=== PATIENT | female | born 1950 | race Caucasian/White ===

== ENCOUNTER 2017-10-08 09:56 | Outpatient (CLI) | payer OTHER, MEDICARE ==
[2017-10-08 17:37] LABS: BASOPHILS % (AUTO) 0.5 %; EOSINOPHILS # (AUTO) 0.2 10^3/uL (0.0-0.7); EOSINOPHILS % (AUTO) 3.7 %; HGB - HEMOGLOBIN 13.7 g/dL (12.0-16.0); LYMPHOCYTES # (AUTO) 2.3 10^3/uL (1.5-3.5); LYMPHOCYTES % (AUTO) 37.9 %; MEAN CORPUSCULAR HEMOGLOBIN 30.8 pg (27.0-31.0); MEAN CORPUSCULAR HGB CONC 33.5 g/dL (32.0-36.0); MEAN CORPUSCULAR VOLUME 92.1 fL (81.0-99.0); MEAN PLATELET VOLUME 7.7 fL (7.9-10.8); MONOCYTES # (AUTO) 0.6 10^3/uL (0.0-1.0); MONOCYTES % (AUTO) 9.2 %; NEUTROPHILS % (AUTO) 48.7 %; PLT - PLATELET COUNT 263 10^3/uL (130-450); RED BLOOD COUNT 4.43 10^6/uL (4.20-5.40); RED CELL DISTRIBUTION WIDTH 13.8 % (12.0-15.0); WHITE BLOOD COUNT 6.1 x10^3/uL (4.8-10.8)
[2017-10-08 17:48] LABS: HB2 TOTAL 14.5 g/dL; HEMOGLOBIN A1C 0.6 g/dL; HEMOGLOBIN A1C % 5.9 % (4.6-6.2)
[2017-10-08 18:39] LABS: ALBUMIN 4.2 g/dL (3.2-5.5); ALBUMIN/GLOBULIN RATIO 1.4 (1.0-2.2); ALKALINE PHOSPHATASE 71 IU/L (42-121); ALT ALANINE AMINOTRANSFERASE 27 IU/L (10-60); AST ASPARTATE AMINOTRANSFERASE 25 IU/L (10-42); BILIRUBIN,TOTAL 1.5 mg/dL (0.2-1.0); BUN - BLOOD UREA NITROGEN 15 mg/dL (6-20); CALCIUM 9.9 mg/dL (8.5-10.3); CARBON DIOXIDE - CO2 29 mmol/L (21-32); CHLORIDE 101 mmol/L (101-111); CHOL/HDL RATIO 3.7 (<4.4); CHOLESTEROL 269 mg/dL; CREATININE 0.5 mg/dL (0.4-1.0); GFR - MDRD 123 (>89); GLUCOSE 110 mg/dL (70-100); HDL CHOLESTEROL 72 mg/dL; LDL CHOLESTEROL,CALCULATED 168 mg/dL; LDL/HDL RATIO 2.3 (<4.4); SODIUM 136 mmol/L (135-145); TOTAL PROTEIN 7.1 g/dL (6.7-8.2); VLDL CHOLESTEROL 29 mg/dL
== END 2017-10-08 09:57 | disposition home or self-care (01) ==
LOC: LAB.F 09:56
PROVIDERS: ATTEND Physician Assistant Medical
DX: I10 Essential (primary) hypertension (principal); E78.5 Hyperlipidemia, unspecified; R73.01 Impaired fasting glucose; E03.9 Hypothyroidism, unspecified
CPT/HCPCS: 36415; 80053; 80061; 83036; 84443; 85025

== ENCOUNTER 2017-10-19 08:00 | Outpatient (CLI) | payer MEDICARE | END 2017-10-19 23:59 | disposition home or self-care (01) | LOC: LAB.F 08:00 | PROVIDERS: ATTEND Family Medicine | DX: Z53.9 Procedure and treatment not carried out, unspecified reason (principal) | CPT/HCPCS: 81599; 83630; 87045; 87046; 87177; 87209 ==

== ENCOUNTER 2017-10-21 14:34 | Outpatient (CLI) | payer OTHER, MEDICARE | END 2017-10-21 14:35 | disposition home or self-care (01) | LOC: LAB.F 14:34 | PROVIDERS: ATTEND Family Medicine | DX: K52.9 Noninfective gastroenteritis and colitis, unspecified (principal) | CPT/HCPCS: 81599; 82270; 83630; 87045; 87046; 87177; 87209 ==

== ENCOUNTER 2018-11-24 10:54 | Outpatient (CLI) | payer MEDICARE ==
[2018-11-24 19:29] LABS: CREATININE 0.5 mg/dL (0.4-1.0)
== END 2018-11-24 10:55 | disposition home or self-care (01) ==
LOC: LAB.F 10:54
PROVIDERS: ATTEND Physical Medicine & Rehabilitation
DX: R29.898 Other symptoms and signs involving the musculoskeletal system (principal)
CPT/HCPCS: 36415; 82565

== ENCOUNTER 2019-08-14 11:59 | Outpatient (CLI) | payer MEDICARE ==
[2019-08-14 18:36] LABS: BASOPHILS % (AUTO) 0.6 %; EOSINOPHILS # (AUTO) 0.2 10^3/uL (0.0-0.7); EOSINOPHILS % (AUTO) 2.7 %; HGB - HEMOGLOBIN 13.6 g/dL (12.0-16.0); LYMPHOCYTES # (AUTO) 2.8 10^3/uL (1.5-3.5); LYMPHOCYTES % (AUTO) 40.7 %; MEAN CORPUSCULAR HEMOGLOBIN 30.2 pg (27.0-31.0); MEAN CORPUSCULAR HGB CONC 32.5 g/dL (32.0-36.0); MEAN CORPUSCULAR VOLUME 93.1 fL (81.0-99.0); MEAN PLATELET VOLUME 9.6 fL (7.9-10.8); MONOCYTES # (AUTO) 0.6 10^3/uL (0.0-1.0); MONOCYTES % (AUTO) 8.7 %; NEUTROPHILS # (AUTO) 3.3 10^3/uL (1.5-6.6); PLT - PLATELET COUNT 257 10^3/uL (130-450); RED CELL DISTRIBUTION WIDTH 13.3 % (12.0-15.0); WHITE BLOOD COUNT 6.9 x10^3/uL (4.8-10.8)
[2019-08-14 18:52] LABS: ALBUMIN 4.3 g/dL (3.2-5.5); ALBUMIN/GLOBULIN RATIO 1.5 (1.0-2.2); BILIRUBIN,TOTAL 1.7 mg/dL (0.2-1.0); CALCIUM 10.2 mg/dL (8.5-10.3); CREATININE 0.5 mg/dL (0.4-1.0); TOTAL PROTEIN 7.1 g/dL (6.7-8.2)
== END 2019-08-14 12:00 | disposition home or self-care (01) ==
LOC: LAB.S 11:59
PROVIDERS: ATTEND Physician Assistant Medical
DX: I10 Essential (primary) hypertension (principal)
CPT/HCPCS: 36415; 80053; 85025

== ENCOUNTER 2019-12-02 14:10 | Outpatient (CLI) | payer MEDICARE | END 2019-12-02 23:59 | disposition home or self-care (01) | LOC: LAB.R 14:10 | PROVIDERS: ATTEND Physician Assistant Medical | DX: B97.89 Other viral agents as the cause of diseases classified elsewhere (principal) | CPT/HCPCS: 81599; U0002 ==

== ENCOUNTER 2020-01-12 04:06 | Emergency (ER) | payer MEDICARE ==
[2020-01-12 04:49] LABS: BILIRUBIN,URINE NEGATIVE (NEGATIVE); GLUCOSE, URINE (UA) 100 mg/dL (NEGATIVE); KETONES,URINE (UA) NEGATIVE (NEGATIVE); LEUKOCYTE ESTERASE, URINE NEGATIVE (NEGATIVE); NITRITE,URINE NEGATIVE (NEGATIVE); OCCULT BLOOD,URINE SMALL (NEGATIVE); PROTEIN,URINE NEGATIVE (NEGATIVE); UROBILINOGEN,URINE 0.2 (NORMAL) E.U./dL (NORMAL)
--- NOTE | 2020-01-12 04:49 | ED Physician Documentation ---
PD HPI FEMALE - Stated complaint Stated Complaint: BACK PX/FEM - Chief complaint Chief Complaint: Abd Pain - History obtained from History obtained from: Patient - History of Present Illness Timing - onset: How many hours ago (3-4), Last night Timing - duration: Hours (3-4) Timing - details: Abrupt onset, Still present Associated symptoms: Abdominal pain, Back pain (left side). No: Fever, Chest/shoulder pain Similar symptoms before: Has not had sx before Recently seen: Clinic (Dx with UTI about 2 weeks ago and Rx for it. [place] better.) Review of Systems Constitutional: denies: Fever, Chills Nose: denies: Rhinorrhea / runny nose, Congestion Throat: denies: Sore throat Respiratory: denies: Cough GI: reports: Abdominal Pain, Nausea, Vomiting. denies: Abdominal Swelling, Constipation, Diarrhea : denies: Dysuria, Discharge Musculoskeletal: denies: Neck pain, Back pain Neurologic: denies: Generalized weakness Psychiatric: denies: Depressed PD PAST MEDICAL HISTORY - Past Medical History Cardiovascular: Hypertension Respiratory: Asthma Endocrine/Autoimmune: HyPOthyroidism GI: Ulcers : Frequency HEENT: Other Psych: Depression, Anxiety Musculoskeletal: Osteoarthritis, Osteoporosis Derm: None - Past Surgical History Past Surgical History: Yes General: Cholecystectomy, Appendectomy /IT SOLUTIONS ARCHITECT: Hysterectomy, Mastectomy HEENT: Cataracts, Other - Present Medications Home Medications: Ambulatory Orders Medication Instructions Recorded Confirmed Acetaminophen [Tylenol] 650 mg PO Q6H PRN 08/16/14 03/14/15 Albuterol Sulfate [Proventil Hfa] 60 puffs IH Q4H PRN 08/16/14 03/14/15 Levothyroxine [Synthroid] 50 mcg PO QDAC 08/16/14 03/14/15 Lisinopril/Hydrochlorothiazide 1 each PO DAILY 08/16/14 03/14/15 [Lisinopril-Hctz 20-12.5 mg Tab] Omeprazole [PriLOSEC] 20 mg PO DAILY 08/16/14 03/14/15 Zolpidem [Ambien] 10 mg PO HS 08/16/14 03/14/15 oxyCODONE/ACET 5/325 [Percocet 5 02/28/15 03/14/15 mg/325 mg] Ibuprofen 400 mg PO BID PRN 03/14/15 03/14/15 Naproxen 375 mg PO BID #20 tablet 01/12/20 Ondansetron Odt [Zofran] 4 mg TL Q6H PRN #10 tablet 01/12/20 Oxycodone HCl/Acetaminophen 1 - 2 each PO Q6H PRN #14 tablet 01/12/20 [Percocet 5-325 mg Tablet] - Allergies Allergies/Adverse Reactions: Allergies Allergy/AdvReac Type Severity Reaction Status Date / Time moxifloxacin HCl * Allergy Severe Respiratory Verified 08/16/14 13:23 [From Avelox] /SOB cortisone Allergy Unknown Verified 01/12/20 05:53 fluticasone propionate * Allergy Unknown Verified 01/12/20 05:53 [From Flonase] - Social History Does the pt smoke?: No Smoking Status: Never smoker Does the pt have substance abuse?: No - POLST Patient has POLST: No PD ED PE NORMAL - Vitals Vital signs reviewed: Yes - General General: Alert and oriented X 3, Well developed/nourished, Other (Appears uncomfortable due to pain on the left side.) - HEENT HEENT: Pharynx benign - Neck Neck: Supple, no meningeal sign, No adenopathy - Cardiac Cardiac: RRR, No murmur - Respiratory Respiratory: Clear bilaterally - Abdomen Abdomen: Normal bowel sounds, Non distended, No organomegaly, Other - Female Female : Deferred - Rectal Rectal: Deferred - Back Back: No spinal TTP (but does have tenderness left flank and some to left lower abd without guarding/percusssion nor rebound tenderness. ) - Derm Derm: Normal color, Warm and dry - Extremities Extremities: Normal ROM s pain, No edema, No calf tenderness / cord - Neuro Neuro: Alert and oriented X 3, No motor deficit, Normal speech Results - Vitals Vitals: Vital Signs - 24 hr 01/12/20 01/12/20 04:16 06:11 Temperature 36.5 C Heart Rate 72 70 Respiratory 22 16 Rate Blood Pressure 160/78 H 152/84 H O2 Saturation 95 97 Oxygen O2 Source Room air - Labs Labs: Laboratory Tests 01/12/20 01/12/20 01/12/20 04:35 04:35 04:35 WBC 12.7 H RBC 4.49 Hgb 13.9 Hct 41.6 MCV 92.7 MCH 31.0 MCHC 33.4 RDW 12.8 Plt Count 256 MPV 9.4 Neut # (Auto) 9.9 H Lymph # (Auto) 1.8 [facility] # (Auto) 0.9 Eos # (Auto) 0.1 Baso # (Auto) 0.1 Absolute Nucleated RBC 0.00 Nucleated RBC % 0.0 Sodium 134 L Potassium 3.2 L Chloride 96 L Carbon Dioxide 24 Anion Gap 14.0 H BUN 13 Creatinine 0.7 Estimated GFR (MDRD) 83 L Glucose 243 H Calcium 9.9 Total Bilirubin 1.2 H AST 39 ALT 33 Alkaline Phosphatase 113 Total Protein 7.2 Albumin 4.3 Globulin 2.9 Albumin/Globulin Ratio 1.5 Lipase 32 Urine Color YELLOW Urine Clarity CLEAR Urine pH 7.0 Ur Specific [place] 1.020 Urine Protein NEGATIVE Urine Glucose (UA) 100 H Urine Ketones NEGATIVE Urine Occult Blood SMALL H Urine Nitrite NEGATIVE Urine Bilirubin NEGATIVE Urine Urobilinogen 0.2 (NORMAL) Ur Leukocyte Esterase NEGATIVE Urine RBC 6-10 H Urine WBC 0-3 Ur Squamous Epith Cells RARE Squamous Urine Crystals 3-5 Calcium Oxalate Urine Bacteria Rare Ur Microscopic Review INDICATED Urine Culture Comments NOT INDICATED - Rads (name of study) KUB CT Radiology: Prelim report reviewed (6 mm stone at the distal left ureter almost of the bladder. No other acute abnormalities.), See rad report PD MEDICAL DECISION MAKING - ED course Complexity details: reviewed results, re-evaluated patient (She is feeling much improved with some IV fluids and medications. She was watched for the duration until labs and CT scan were obtained), considered differential (Consider kidney stone versus kidney infection versus diverticulitis or other process.), d/w patient Departure - Departure Disposition: 01 Home, Self Care Clinical Impression: Left sided abdominal pain, Ureterolithiasis Condition: Stable Record reviewed to determine appropriate education?: Yes Instructions: ED Stone Renal W Colic Follow-Up: Awa Santiago PA-C [Primary Care Provider] - Prescriptions: Naproxen 375 mg PO BID #20 tablet Ondansetron Odt [Zofran] 4 mg TL Q6H PRN #10 tablet PRN Reason: Nausea / Vomiting Oxycodone HCl/Acetaminophen [Percocet 5-325 mg Tablet] 1 - 2 each PO Q6H PRN #14 tablet PRN Reason: pain Comments: You had a 6 mm stone at the distal ureter on the left. It was almost into the bladder. Stay well-hydrated. Use anti-inflammatory naproxen twice daily for the next several days to a week. Add ondansetron if needed for nausea and oxycodone as needed for pain. I would anticipate passage of the stone in the next couple of days if not so juan pablo. Recheck if persistent pain beyond that time or intractable pain not improved with the oral medicines. Discharge Date/Time: 01/12/20 07:27
[2020-01-12 04:50] LABS: CLARITY,URINE CLEAR (CLEAR)
[2020-01-12 04:55] LABS: BACTERIA,URINE Rare /HPF (None Seen); CRYSTALS,URINE 3-5 Calcium Oxalate /LPF; SQUAMOUS EPITHELIAL CELL,UR RARE Squamous (<= Few)
[2020-01-12] MEDS ORDERED: ONDANSETRON 4 MG/2 ML VIAL IVP STA (05:06)
[2020-01-12] MEDS ORDERED: KETOROLAC 30 MG/ML VIAL IVP STA (05:06)
[2020-01-12] MEDS ORDERED: SODIUM CHLORIDE 0.9% 1,000 ML IV ONE ×2 (05:06→05:07)
[2020-01-12] MEDS ORDERED: HYDROmorphone 1 MG/ML SYRINGE IVP STA (05:07)
[2020-01-12 05:16] LABS: BASOPHILS # (AUTO) 0.1 10^3/uL (0.0-0.1); BASOPHILS % (AUTO) 0.4 %; EOSINOPHILS # (AUTO) 0.1 10^3/uL (0.0-0.7); EOSINOPHILS % (AUTO) 0.7 %; HGB - HEMOGLOBIN 13.9 g/dL (12.0-16.0); LYMPHOCYTES # (AUTO) 1.8 10^3/uL (1.5-3.5); LYMPHOCYTES % (AUTO) 13.9 %; MEAN CORPUSCULAR HGB CONC 33.4 g/dL (32.0-36.0); MEAN CORPUSCULAR VOLUME 92.7 fL (81.0-99.0); MEAN PLATELET VOLUME 9.4 fL (7.9-10.8); MONOCYTES # (AUTO) 0.9 10^3/uL (0.0-1.0); MONOCYTES % (AUTO) 6.7 %; NEUTROPHILS # (AUTO) 9.9 10^3/uL (1.5-6.6); NEUTROPHILS % (AUTO) 77.8 %; PLT - PLATELET COUNT 256 10^3/uL (130-450); RED BLOOD COUNT 4.49 10^6/uL (4.20-5.40); RED CELL DISTRIBUTION WIDTH 12.8 % (12.0-15.0); WHITE BLOOD COUNT 12.7 x10^3/uL (4.8-10.8)
[2020-01-12 05:29] LABS: ALBUMIN 4.3 g/dL (3.2-5.5); ALBUMIN/GLOBULIN RATIO 1.5 (1.0-2.2); BILIRUBIN,TOTAL 1.2 mg/dL (0.2-1.0); CALCIUM 9.9 mg/dL (8.5-10.3); CREATININE 0.7 mg/dL (0.4-1.0); TOTAL PROTEIN 7.2 g/dL (6.7-8.2)
[2020-01-12 06:12] VITALS: BP 152/84
--- NOTE | 2020-01-12 06:12 | CT Report ---
Reason: left abd/flank pain Procedure Date: 01/12/2020 Accession Number: [id number] / [id number] Procedure: CT - Abdomen/Pelvis WO CPT Code: Final Report FULL RESULT: EXAM: CT ABDOMEN AND PELVIS (CT KUB) EXAM DATE: 01/12/2020 05:40 AM. CLINICAL HISTORY: Left abdominal and flank pain. COMPARISONS: None. TECHNIQUE: Routine axial helical CT imaging was performed through the abdomen and pelvis without IV contrast. Reconstructions: Coronal and sagittal. In accordance with CT protocol optimization, one or more of the following dose reduction techniques were utilized for this exam: automated exposure control, adjustment of mA and/or KV based on patient size, or use of iterative reconstructive technique. FINDINGS: Bibasilar atelectasis is seen. The visible heart is normal in size. There is no pericardial effusion focal areas of decreased attenuation are seen throughout the liver, which likely represent areas of focal fatty infiltration. Liver is enlarged measuring 20.3 cm in the craniocaudal dimension. The gallbladder is absent. Mild dilatation of the extrahepatic bile ducts is likely rate related to postcholecystectomy status. The unenhanced spleen, pancreas, and adrenal glands are within normal limits. There is a 6 mm calculus at the left ureterovesicular junction with mild hydroureteronephrosis and perinephric/periureteral edema. There is an additional 4 mm calyceal calculus. No right renal or ureteral calculi are seen. There is no right hydronephrosis. The intestines are normal in caliber and position. The appendix is normal. There is no evidence of bowel obstruction or inflammation. No free intraperitoneal air or ascites is seen. There is no lymphadenopathy. The unenhanced abdominal aorta is normal in course and caliber. There is a lower anterior abdominal wall ventral hernia containing fat with a hernia neck measuring 5.4 cm. The bladder is normal. No bladder calculi or bladder wall thickening is seen. The uterus and ovaries are absent. Multiple phleboliths are seen in the pelvis. There is no free pelvic fluid. Grade 1 retrolisthesis is seen at L3 on L4. Facet arthropathy is seen in the lower lumbar spine. No suspicious lytic or blastic lesions are seen. IMPRESSION: 1. 6 mm calculus at the left ureterovesicular junction with mild hydroureteronephrosis and perinephric/periureteral edema. 2. Additional nonobstructing 4 mm left renal calculus. 3. Hepatomegaly with heterogeneous appearance of the liver and multiple focal areas of hypoattenuation likely representing focal fatty infiltration. RADIA
[2020-01-12] MEDS ORDERED: ONDANSETRON ODT 4 MG Prepack 2 TL PRN (06:32)
[2020-01-12] MEDS ORDERED: oxyCODONE/ACET 5/325 Prepack 4 PO STA (06:32)
== END 2020-01-12 07:27 | disposition home or self-care (01) ==
LOC: ED 04:06
DX: N13.2 Hydronephrosis with renal and ureteral calculous obstruction (principal); I10 Essential (primary) hypertension
CPT/HCPCS: 36415; 74176; 80053; 81001; 83690; 85025; 96361; 96374; 99284; J1170; 81003; 87086

== ENCOUNTER 2020-03-23 12:07 | Outpatient (CLI) | payer OTHER, MEDICARE | END 2020-03-23 12:08 | disposition home or self-care (01) | LOC: LAB 12:07 | PROVIDERS: ATTEND Registered Nurse | DX: Z01.84 Encounter for antibody response examination (principal); B34.9 Viral infection, unspecified | CPT/HCPCS: 36415; 81599; 86769 ==

== ENCOUNTER 2020-06-02 13:28 | Outpatient (CLI) | payer OTHER, MEDICARE ==
--- NOTE | 2020-06-02 14:52 | XRAY Report ---
PROCEDURE: Hip w/Pelvis 2-3V RT INDICATIONS: PELVIC PAIN TECHNIQUE: AP pelvis with lateral view(s) of the bilateral hip(s). COMPARISON: CT abdomen and pelvis 01/12/2020 FINDINGS: Bones: No fractures or dislocations. Pelvic ring appears intact. No suspicious bony lesions. Note is made of symmetric mild to moderate hip joint osteoarthritis, without trauma. Soft tissues: The visualized bowel gas pattern is normal. No suspicious soft tissue calcifications. Multiple pelvic sidewall phleboliths. IMPRESSION: No trauma found. Mild to moderate symmetric hip joint osteoarthritis. Multiple pelvic ph leboliths incidentally noted over the pelvic sidewalls bilaterally. A distal ureteral stone is not jacobs spected. Reviewed by: Sawyer Whitehead MD on 06/02/2020 2:51 PM PDT Approved by: Sawyer Whitehead MD on 06/02/2020 2:51 PM PDT Station ID: [id number]
== END 2020-06-02 13:29 | disposition home or self-care (01) ==
LOC: DI.S 13:28
PROVIDERS: ATTEND Family Medicine
DX: M16.11 Unilateral primary osteoarthritis, right hip (principal)

== ENCOUNTER 2020-06-07 12:00 | Outpatient (CLI) | payer MEDICARE, OTHER | END 2020-06-07 12:01 | disposition home or self-care (01) | LOC: LAB 12:00 | PROVIDERS: ATTEND Registered Nurse | DX: Z20.1 Contact with and (suspected) exposure to tuberculosis (principal) | CPT/HCPCS: 36415; 81599; 86480 ==

== ENCOUNTER 2020-09-30 07:00 | Outpatient (CLI) | payer OTHER, MEDICARE | END 2020-09-30 23:59 | disposition home or self-care (01) | LOC: COV 07:00 | PROVIDERS: ATTEND Family Medicine | DX: R50.9 Fever, unspecified (principal); M79.10 Myalgia, unspecified site; R53.83 Other fatigue; R09.81 Nasal congestion; J34.89 Other specified disorders of nose and nasal sinuses; Z20.822 Contact with and (suspected) exposure to COVID-19 ==

== ENCOUNTER 2020-10-24 07:00 | Outpatient (CLI) | payer OTHER, MEDICARE | END 2020-10-24 23:59 | disposition home or self-care (01) | LOC: COV 07:00 | PROVIDERS: ATTEND Family Medicine | DX: R05 Cough (principal); R06.02 Shortness of breath; R53.83 Other fatigue; R07.0 Pain in throat; R19.7 Diarrhea, unspecified; R11.0 Nausea; Z20.822 Contact with and (suspected) exposure to COVID-19 ==

== ENCOUNTER 2022-05-25 08:00 | Outpatient (CLI) | payer OTHER, MEDICARE ==
--- NOTE | 2022-05-25 18:39 | XRAY Report ---
PROCEDURE: Clavicle RT INDICATIONS: RIGHT CLAVICULAR ENLARGEMENT TECHNIQUE: 2 views of the clavicle were acquired. COMPARISON: None. FINDINGS: Bones: No fractures or dislocations. No suspicious bony lesions. Soft tissues: No suspicious soft tissue calcifications. IMPRESSION: Unremarkable right clavicle radiographs. Consider follow-up CT or MR. Reviewed by: Sunil Tanner MD on 05/25/2022 5:38 PM CESAR Approved by: Sunil Tanner MD on 05/25/2022 5:38 PM AKHALLIE Station ID: [id number]
== END 2022-05-25 08:01 | disposition home or self-care (01) ==
LOC: DI.S 08:00
PROVIDERS: ATTEND Internal Medicine
DX: M89.38 Hypertrophy of bone, other site (principal)

== ENCOUNTER 2022-06-22 10:46 | Outpatient (CLI) | payer MEDICARE ==
--- NOTE | 2022-06-22 21:08 | CT Report ---
PROCEDURE: UPPER EXTREMITY WO - RT INDICATIONS: CLAVICULAR ENLARGEMENT TECHNIQUE: Noncontrast 3 mm axial sections acquired of the right shoulder and right clavicle, with coronal and s agittal reformats. For radiation dose reduction, the following was used: automated exposure control , adjustment of mA and/or kV according to patient size. COMPARISON: None. FINDINGS: Image quality: Excellent. Bones: Moderate osteoarthritic changes are noted involving sternoclavicular joint with joint space n arrowing, subchondral sclerosis and prominent marginal osteophyte formation anteriorly. Moderate acro mioclavicular joint and glenohumeral joint osteoarthritic changes also seen with joint space narrowin g, subchondral sclerosis and marginal osteophyte formation. There is no fracture or dislocation. No s uspicious intraosseous lesion. Soft tissues: No discrete soft tissue mass is noted in right anterior chest wall or adjacent to acro mioclavicular joint. No axillary lymphadenopathy by size criteria. Visualized right upper lung field is clear. No abnormal soft tissue calcification is seen. IMPRESSION: 1. Hypertrophic changes involving right sternoclavicular joint with prominent anterior marginal osteo phyte formation consistent with changes related to osteoarthritis. No discrete soft tissue mass is se en. No significant fluid collection or abnormal soft tissue calcifications. 2. Moderate osteoarthritic changes also noted in acromioclavicular joint and glenohumeral joint. No f racture or dislocation. No suspicious intraosseous lesion. Reviewed by: Franklin Nicholson MD on 06/22/2022 9:06 PM PDT Approved by: Franklin Nicholson MD on 06/22/2022 9:06 PM PDT Station ID: [id number]
== END 2022-06-22 10:47 | disposition home or self-care (01) ==
LOC: DI 10:46
PROVIDERS: ATTEND Internal Medicine
DX: M19.011 Primary osteoarthritis, right shoulder (principal)

== ENCOUNTER 2022-12-31 08:00 | Outpatient (CLI) | payer MEDICARE ==
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
== END 2022-12-31 23:59 | disposition home or self-care (01) ==
LOC: DI.S 08:00
PROVIDERS: ATTEND Registered Nurse
DX: M47.812 Spondylosis without myelopathy or radiculopathy, cervical region (principal)

== ENCOUNTER 2022-12-31 15:11 | Outpatient (CLI) | payer MEDICARE | END 2022-12-31 23:59 | disposition EMS.NT | LOC: EMS 15:11 | DX: M54.50 Low back pain, unspecified (principal); Y04.2XXA Assault by strike against or bumped into by another person, initial encounter; Y92.009 Unspecified place in unspecified non-institutional (private) residence as the place of occurrence of the external cause ==

== ENCOUNTER 2023-03-01 08:00 | Outpatient (CLI) | payer MEDICARE ==
--- NOTE | 2023-03-02 03:12 | XRAY Report ---
PROCEDURE: Hip w/Pelvis 2-3V LT INDICATIONS: LEFT HIP PAIN TECHNIQUE: AP pelvis with lateral view of the left. COMPARISON: None. FINDINGS: Bones: No fractures or dislocations. No suspicious bony lesions. Soft tissues: No suspicious soft tissue calcifications or masses. IMPRESSION: 1. No fracture or dislocation. Reviewed by: Domenic Denise MD on 03/02/2023 3:10 AM PDT Approved by: Domenic Denise MD on 03/02/2023 3:10 AM PDT Station ID: [id number]
== END 2023-03-01 23:59 | disposition home or self-care (01) ==
LOC: DI.S 08:00
PROVIDERS: ATTEND Internal Medicine
DX: M25.552 Pain in left hip (principal)